=== PATIENT | male | born 1990 | race American Indian/Alaskan Native ===

== ENCOUNTER 2018-05-19 10:09 | Emergency (ER) | payer SELFPAY ==
[2018-05-19 10:23] VITALS: BP 178/90
--- NOTE | 2018-05-19 11:55 | Emergency Department Report ---
Nishi Doc - Documentation Documentation: Patient is a 28-year-old Iraqi male who states he fell 2 weeks ago and injured his left knee. Patient has a hard time bearing weight he was able to stand for me but states that putting full weight on left leg was painful. Patient does not remember all the details of his fall. Patient does appear to possibly have possible sleep disorder and he was snoring in the room after being in the room for approximately 1 minute dark and had to be woken up. Patient seemed very sleepy while we discussed his fall. Patient is does have some generalized tenderness to the left knee does have full range of motion x- rays be taken.
--- NOTE | 2018-05-19 12:34 | Emergency Department Report ---
ED Lower Extremity HPI - General Chief Complaint: Extremity Injury, Lower Stated Complaint: LEFT KNEE PAIN Time Seen by Provider: 05/19/18 11:50 Source: patient Mode of arrival: Ambulatory Limitations: No Limitations - History of Present Illness Initial Comments: This is a 28-year-old male who presents with left knee pain from falling yard at home 2 days ago. Patient is falling a sleep during exam. Patient states he was up all night studying which is causing drowsiness. He is unsure of how he fell at home in front yard. He stood up and couldn't bear weight to left lower extremity. Patient states it is very painful to bend left knee. Pain is 10 out of 10 on pain scale and sharp in intensity. Patient denies numbness or tingling, fever, loss of consciousness, change in voiding and bowel pattern, chest pain, and warmth. MD Complaint: knee injury (left knee pain) Onset/Timin -: days(s) Injury: Knee: Left Type of Injury: unknown Place: home Severity: severe Severity scale (0 -10): 10 Improves With: nothing Worsens With: weight bearing, movement, palpation Context: fall Associated Symptoms: snap/pop sensation, swelling, able to partially bear weight , ambulatory. denies: numbness, tingling, unable to bear weight Treatments Prior to Arrival: NSAIDS - Related Data Previous Rx's Medication Instructions Recorded Last Taken Type Acetaminophen/Codeine [Tylenol #3] 1 tab PO Q6H PRN #20 tab 07/18/15 Unknown Rx Cyclobenzaprine [Flexeril 10 MG 10 mg PO TID PRN #30 tablet 07/18/15 Unknown Rx TAB] Ibuprofen [Motrin] 600 mg PO Q8H PRN #50 tablet 07/18/15 Unknown Rx Ibuprofen [Motrin 800 MG tab] 800 mg PO Q8HR PRN #20 tablet 05/19/18 Unknown Rx traMADol [Ultram 50 MG tab] 50 mg PO Q6HR PRN #12 tablet 05/19/18 Unknown Rx Allergies Allergy/AdvReac Type Severity Reaction Status Date / Time Fish Containing Products AdvReac Unknown Verified 07/18/15 10:21 ED Review of Systems ROS: Stated complaint: LEFT KNEE PAIN Other details as noted in HPI Constitutional: denies: chills, fever Respiratory: denies: cough, shortness of breath, wheezing Cardiovascular: denies: chest pain, palpitations Gastrointestinal: denies: abdominal pain, nausea, vomiting, diarrhea Musculoskeletal: joint swelling (left ankle), arthralgia (left knee and ankle). denies: back pain Skin: denies: rash, lesions Neurological: denies: headache, weakness, paresthesias Psychiatric: denies: anxiety, depression ED Past Medical Hx - Past Medical History Hx Asthma: Yes Additional medical history: OBESITY - Surgical History Past Surgical History?: No - Social History Smoking Status: Current Every Day Smoker Substance Use Type: None - Medications Home Medications: Home Medications Medication Instructions Recorded Confirmed Last Taken Type Acetaminophen/Codeine [Tylenol #3] 1 tab PO Q6H PRN #20 tab 07/18/15 Unknown Rx Cyclobenzaprine [Flexeril 10 MG 10 mg PO TID PRN #30 tablet 07/18/15 Unknown Rx TAB] Ibuprofen [Motrin] 600 mg PO Q8H PRN #50 tablet 07/18/15 Unknown Rx Ibuprofen [Motrin 800 MG tab] 800 mg PO Q8HR PRN #20 tablet 05/19/18 Unknown Rx traMADol [Ultram 50 MG tab] 50 mg PO Q6HR PRN #12 tablet 05/19/18 Unknown Rx ED Physical Exam - General Limitations: No Limitations General appearance: alert, in no apparent distress, obese - Respiratory Respiratory exam: Present: normal lung sounds bilaterally. Absent: respiratory distress - Cardiovascular Cardiovascular Exam: Present: regular rate, normal rhythm. Absent: systolic murmur, diastolic murmur, rubs, gallop - GI/Abdominal GI/Abdominal exam: Present: soft, normal bowel sounds. Absent: organomegaly, mass - Extremities Exam Extremities exam: Present: normal inspection, normal capillary refill, pedal edema (LLE). Absent: calf tenderness - Expanded Lower Extremity Exam Left Hip exam: Present: normal inspection, full ROM Upper Leg exam: Present: normal inspection, full ROM Knee exam: Present: tenderness, swelling, pain w/ pronation/supination. Absent : full ROM (limited secondary to pain), abrasion, laceration, ecchymosis, deformity, crepidus, erythema, posterior draw sign, full knee extension Lower Leg exam: Present: tenderness (lateral proximal fibula), swelling. Absent : full ROM (limited secondary pain), laceration, ecchymosis, deformity, crepidus , dislocation, erythema, palpable cord, Nelida's sign Ankle exam: Present: tenderness, swelling. Absent: abrasion, laceration, ecchymosis, crepidus, dislocation, erythema Foot/Toe exam: Present: swelling Neuro vascular tendon exam: Present: no vascular compromise Gait: Positive: observed and limited by pain ED Course Vital Signs 05/19/18 10:17 Temperature 98.2 F Pulse Rate 113 H Respiratory 19 Rate Blood Pressure 178/90 [Left] O2 Sat by Pulse 97 Oximetry ED Lower Extremity MDM - Radiology Data Radiology results: report reviewed, image reviewed LEFT KNEE RADIOGRAPHS INDICATION: Fall, injury. COMPARISON: None similar. FINDINGS: AP, lateral and oblique left knee radiographs suggest a comminuted, Y-shaped proximal tibial metadiaphyseal fracture suspected, also extending to the proximal tibiofibular articulation. No significant displacement however. Intact knee joint articulation. No suprapatellar effusion. CONCLUSION: Left proximal fibular acute fracture, as described. - Medical Decision Making This is a 28 y.o. male presents with left knee pain s/p fall 2 days ago. Patient was examined by me and Dr. Benavides. Vitals are stable and patient is in no acute distress. Obtained a x-ray of L-spine. X-rays read by radiologist and report and image reviewed by myself. Left proximal fibular acute fracture, as described. Patient informed of results. Knee immobilizer applied to left lower extremity. Patient given crutches with training. Instructed to avoid weightbearing to LLE. Start ibuprofen and tramadol for pain. Follow-up with orthopedics from referrals. Plan discussed with patient to discharge home and treat outpatient. He agrees with ER plan. Patient discharged home in stable condition. Follow up with PCP in 2-3 days. Critical care attestation.: If time is entered above; I have spent that time in minutes in the direct care of this critically ill patient, excluding procedure time. ED Disposition Clinical Impression: Left lateral knee pain Fracture, fibula, proximal Qualifiers: Encounter type: initial encounter Fracture type: closed Fracture morphology: unspecified fracture morphology Laterality: left Qualified Code(s): S82.832A - Other fracture of upper and lower end of left fibula, initial encounter for closed fracture Disposition: TO HOME OR SELFCARE Is pt being admited?: No Does the pt Need Aspirin: No Condition: Stable Instructions: Leg Fracture (ED), Arthralgia (ED) Additional Instructions: Rest Take pain medication every 6 hours as needed for pain. Follow up with orthopedic surgery for management of leg fracture. Follow up with Primary Care Provider in 2-3 days. Prescriptions: Ibuprofen [Motrin 800 MG tab] 800 mg PO Q8HR PRN #20 tablet PRN Reason: Pain, Moderate (4-6) traMADol [Ultram 50 MG tab] 50 mg PO Q6HR PRN #12 tablet PRN Reason: Pain Referrals: ALBERTO SEARS MD [Staff Physician] - 3-5 Days [facility] [Provider Group] - 3-5 Days [facility] [Outside] - 3-5 Days Forms: Work/School Release Form(ED) Time of Disposition: 13:00 Print Language: NICARAGUAN
--- NOTE | 2018-05-19 12:49 | XRay Report ---
LEFT KNEE RADIOGRAPHS INDICATION: Fall, injury. COMPARISON: None similar. FINDINGS: AP, lateral and oblique left knee radiographs suggest a comminuted, Y-shaped proximal tibial metadiaphyseal fracture suspected, also extending to the proximal tibiofibular articulation. No significant displacement however. Intact knee joint articulation. No suprapatellar effusion. CONCLUSION: Left proximal fibular acute fracture, as described. Thank you for the opportunity to participate in this patient's care.
[2018-05-19] MEDS ORDERED: ULTRAM PO ONE (13:01)
== END 2018-05-19 13:14 | disposition home or self-care (01) ==
LOC: ED 10:09
DX: S82.832A Other fracture of upper and lower end of left fibula, initial encounter for closed fracture (principal); J45.909 Unspecified asthma, uncomplicated; F17.200 Nicotine dependence, unspecified, uncomplicated; Z91.013 Allergy to seafood; W19.XXXA Unspecified fall, initial encounter; Y93.89 Activity, other specified; Y99.8 Other external cause status; Y92.007 Garden or yard of unspecified non-institutional (private) residence as the place of occurrence of the external cause

== ENCOUNTER 2019-01-09 18:22 | Emergency (ER) | payer OTHER ==
--- NOTE | 2019-01-09 19:33 | Emergency Department Report ---
Blank Doc - Documentation Documentation: 28 y/o male c/o of rash to penis and scrotum having blisters too. No discharge. no dysuria. Plan evaluation [facility]
[2019-01-09] MEDS ORDERED: PERCOCET 5/325 PO STA (21:33)
--- NOTE | 2019-01-10 02:02 | Emergency Department Report ---
Chief Complaint: Urogenital-Male Stated Complaint: INFECTION IN PRIVATE AREA Time Seen by Provider: 01/09/19 19:32 - HPI History of Present Illness: 28-year-old -Swiss male presents to the emergency room for penile discharge and dysuria times a couple of days. Patient denies any fever or chills he denies any abdominal pain. Patient does admit to being sexually active with females one partner unprotected one partners protected. - Exam Vital Signs: Vital Signs 01/09/19 19:03 Temperature 97.9 F Pulse Rate 102 H Respiratory 20 Rate Blood Pressure 149/84 O2 Sat by Pulse 95 Oximetry MSE screening note: Focused history and physical exam performed. Due to findings the following was ordered: ED Disposition for MSE Clinical Impression: Discharge from penis Disposition: MED SCREENING EXAM-LEFT Is pt being admited?: No Does the pt Need Aspirin: No Condition: Stable Referrals: DORON IBARRA MD [Primary Care Provider] - 3-5 Days [facility] [Outside] - 3-[address] [facility] [Outside] - 3-5 Days [facility] [Outside] - 3-5 Days [facility] [Outside] - 3-5 Days [facility] [Outside] - 3-5 Days [facility] [Outside] - 3-5 Days
[2019-01-10 06:48] VITALS: BP 116/67
== END 2019-01-10 02:15 | disposition left against medical advice (07) ==
LOC: ED 18:22
DX: R36.9 Urethral discharge, unspecified (principal); R30.0 Dysuria; Z91.013 Allergy to seafood
CPT/HCPCS: 99282

== ENCOUNTER 2019-01-11 12:33 | Emergency (ER) | payer SELFPAY ==
[2019-01-11 12:49] VITALS: BP 163/96
[2019-01-11] MEDS ORDERED: XYLOCAINE 1% MPF 5 mL INFILTRATI ONE (16:05)
[2019-01-11] MEDS ORDERED: ROCEPHIN IM ONE (16:05)
[2019-01-11] MEDS ORDERED: FLAGYL PO ONE (16:05)
[2019-01-11] MEDS ORDERED: ZITHROMAX PO ONE (16:05)
[2019-01-11] MEDS ORDERED: ZOFRAN ODT PO ONE (16:06)
--- NOTE | 2019-01-11 16:08 | Emergency Department Report ---
ED Dysuria HPI - HPI Chief Complaint: Urogenital-Male Stated Complaint: PENIS SWELLING Time Seen by Provider: 01/11/19 15:35 Duration: 5 Days Severity: Moderate Symptoms: Dysuria: Yes, Frequency: No, Suprapubic Pain: No, Flank Pain: No, Fever: No, Hematuria: No, Abdominal Pain: No, Previous UTI's: No Other History: Patient is a 28-year-old male who comes to the ER complaining of discharge from his penis. He said he states that he was seen in the HIV clinic yesterday and was told he was negative and he was sent home on Zovirax. He was given no medicines in the clinic. Patient has beata green discharge from his penis. ED Review of Systems ROS: Stated complaint: PENIS SWELLING Other details as noted in HPI Comment: All other systems reviewed and negative Constitutional: denies: no symptoms reported, chills ENT: denies: as per HPI, ear pain Respiratory: denies: cough Cardiovascular: denies: as per HPI Endocrine: denies: see HPI Genitourinary: as per HPI, dysuria, discharge Musculoskeletal: denies: back pain Skin: denies: rash Neurological: denies: as per HPI, weakness Psychiatric: denies: anxiety Hematological/Lymphatic: denies: easy bleeding ED Past Medical Hx - Past Medical History Hx Asthma: Yes Additional medical history: OBESITY - Surgical History Past Surgical History?: No - Family History Family history: no significant - Social History Smoking Status: Current Every Day Smoker - Medications Home Medications: Home Medications Medication Instructions Recorded Confirmed Last Taken Type Acetaminophen/Codeine [Tylenol #3] 1 tab PO Q6H PRN #20 tab 07/18/15 Unknown Rx Cyclobenzaprine [Flexeril 10 MG 10 mg PO TID PRN #30 tablet 07/18/15 Unknown Rx TAB] Ibuprofen [Motrin] 600 mg PO Q8H PRN #50 tablet 07/18/15 Unknown Rx Ibuprofen [Motrin 800 MG tab] 800 mg PO Q8HR PRN #20 tablet 05/19/18 Unknown Rx traMADol [Ultram 50 MG tab] 50 mg PO Q6HR PRN #12 tablet 05/19/18 Unknown Rx Dysuria Exam - Exam General: Vital signs noted. No distress. Alert and acting appropriately. Exam: Yes Moist Mucous Membranes, No CVA Tenderness, No Abdominal Tenderness, No Rigidity or Guarding ED Course Vital Signs 01/11/19 01/11/19 12:47 15:47 Temperature 98.1 F Pulse Rate 106 H Respiratory 16 16 Rate Blood Pressure 163/96 O2 Sat by Pulse 98 Oximetry ED Medical Decision Making - Medical Decision Making beata malhotra dc from penis GC sent RPR sent treated with flagyl, azithromycin and rocephin safe sex education provided dc home with dc plan of care Vital Signs 01/11/19 01/11/19 12:47 15:47 Temperature 98.1 F Pulse Rate 106 H Respiratory 16 16 Rate Blood Pressure 163/96 O2 Sat by Pulse 98 Oximetry Critical care attestation.: If time is entered above; I have spent that time in minutes in the direct care of this critically ill patient, excluding procedure time. ED Disposition Clinical Impression: STD (sexually transmitted disease) Disposition: DC-01 TO HOME OR SELFCARE Is pt being admited?: No Does the pt Need Aspirin: No Condition: Stable Instructions: Safe Sex (ED), Sexually Transmitted Diseases (ED) Additional Instructions: CONTINUE YOUR ZOVIRAX DIET TOLERATED MEDS ORDERED TODAY IN ER FOLLOW INSTRUCTIONS ON THE BOTTLE FOLLOW UP PCP WITHIN 48 HOURS TO ENSURE YOU ARE GETTING BETTER ACTIVITY TOLERATED MOTRIN OR TYLENOL FOR PAIN OR FEVER RETURN TO THE ER FOR WORSENING SYMPTOMS NOT RELIEVED BY YOUR MEDICATIONS. ALL SEXUAL PARTNERS NEED TO BE TREATED DO NOT HAVE SEX WITH THEM OR YOU WILL GET THIS BACK NO SEX FOR 1 WEEK Referrals: [facility] [Other] - 3-5 Days Time of Disposition: 16:08
[2019-01-11 16:41] LABS: Bilirubin,Urine NEG (Negative); Blood,Urine MOD (Negative); Color,Urine Yellow (Yellow); Urobilinogen,Urine < 2.0 mg/dL (<2.0)
[2019-01-11 16:42] LABS: WBC,Urine > 182.0 /HPF (0.0-6.0)
== END 2019-01-11 17:07 | disposition home or self-care (01) ==
LOC: ED 12:33
DX: A64 Unspecified sexually transmitted disease (principal); F17.200 Nicotine dependence, unspecified, uncomplicated; Z79.899 Other long term (current) drug therapy; Z91.013 Allergy to seafood
CPT/HCPCS: 36415; 81001; 86592; 87591; 96372; 99283; J0696; Q0162

== ENCOUNTER 2020-01-20 07:00 | Emergency (ER) | payer SELFPAY ==
[2020-01-20 07:12] VITALS: BP 148/94
--- NOTE | 2020-01-20 08:01 | Emergency Department Report ---
ED Male HPI - General Chief complaint: Urogenital-Male Stated complaint: RASH IN PENIAL AREA Time Seen by Provider: 01/20/20 07:32 Source: patient Mode of arrival: Ambulatory Limitations: No Limitations - History of Present Illness Initial comments: This is a 29-year-old male who presents to the ED complaining of red, burning type rash to the penile head x1 week. Patient states that he had a similar rash about a year ago which lasted a week and went away. Patient states that the same rash returned a week ago and is worse this time. Patient denies any itching, fever, testicular swelling or pain, urinary symptoms or penile discharge. - Related Data Previous Rx's Medication Instructions Recorded Last Taken Type Acetaminophen/Codeine [Tylenol #3] 1 tab PO Q6H PRN #20 tab 07/18/15 Unknown Rx Cyclobenzaprine [Flexeril 10 MG 10 mg PO TID PRN #30 tablet 07/18/15 Unknown Rx TAB] Ibuprofen [Motrin] 600 mg PO Q8H PRN #50 tablet 07/18/15 Unknown Rx Ibuprofen [Motrin 800 MG tab] 800 mg PO Q8HR PRN #20 tablet 05/19/18 Unknown Rx traMADoL [Ultram 50 MG tab] 50 mg PO Q6HR PRN #12 tablet 05/19/18 Unknown Rx Acyclovir [Zovirax] 1 applic TP TID #1 oint...g. 01/20/20 Unknown Rx Allergies Allergy/AdvReac Type Severity Reaction Status Date / Time Fish Containing Products AdvReac Unknown Verified 01/20/20 07:05 ED Review of Systems ROS: Stated complaint: RASH IN PENIAL AREA Other details as noted in HPI Comment: All other systems reviewed and negative ED Past Medical Hx - Past Medical History Hx Asthma: Yes Additional medical history: OBESITY - Surgical History Past Surgical History?: No - Social History Smoking Status: Current Every Day Smoker - Medications Home Medications: Home Medications Medication Instructions Recorded Confirmed Last Taken Type Acetaminophen/Codeine [Tylenol #3] 1 tab PO Q6H PRN #20 tab 07/18/15 Unknown Rx Cyclobenzaprine [Flexeril 10 MG 10 mg PO TID PRN #30 tablet 07/18/15 Unknown Rx TAB] Ibuprofen [Motrin] 600 mg PO Q8H PRN #50 tablet 07/18/15 Unknown Rx Ibuprofen [Motrin 800 MG tab] 800 mg PO Q8HR PRN #20 tablet 05/19/18 Unknown Rx traMADoL [Ultram 50 MG tab] 50 mg PO Q6HR PRN #12 tablet 05/19/18 Unknown Rx Acyclovir [Zovirax] 1 applic TP TID #1 oint...g. 01/20/20 Unknown Rx ED Physical Exam - General Limitations: No Limitations General appearance: alert, in no apparent distress - Head Head exam: Present: atraumatic, normocephalic - Eye Eye exam: Present: normal appearance - ENT ENT exam: Present: mucous membranes moist - Neck Neck exam: Present: normal inspection - Respiratory Respiratory exam: Absent: respiratory distress - Cardiovascular Cardiovascular Exam: Absent: systolic murmur, diastolic murmur, rubs, gallop - GI/Abdominal GI/Abdominal exam: Present: soft, normal bowel sounds - Rectal Rectal exam: Present: deferred - exam: Present: other (Uncircumcised). Absent: testicular tenderness, scrotal swelling External exam: Present: erythema, lesions, other (Upon pulling back foreskin, there were some red ulcerative i lesions to the penile head, no lesions noted on the shaft, ). Absent: swelling, lacerations, bleeding - Extremities Exam Extremities exam: Present: normal inspection - Back Exam Back exam: Present: normal inspection - Neurological Exam Neurological exam: Present: alert, oriented X3, normal gait - Psychiatric Psychiatric exam: Present: normal affect, normal mood - Skin Skin exam: Present: warm, dry, intact, normal color. Absent: rash ED Course Vital Signs 01/20/20 07:10 Temperature 97.6 F Pulse Rate 124 H Respiratory 20 Rate Blood Pressure 148/94 O2 Sat by Pulse 89 Oximetry ED Medical Decision Making - Medical Decision Making 29-year-old male presents with a penile rash consistent with herpes simplex virus. I discussed with patient and his partner to follow-up with the primary care physician or the health department for STD screening specifically HSV2 I discussed with patient and his partner to avoid sex until lesions disappear and tested. Will discharge patient with Zovirax cream. Discussed proper cleaning techniques Vital signs are normal patient is in no acute distress Critical care attestation.: If time is entered above; I have spent that time in minutes in the direct care of this critically ill patient, excluding procedure time. ED Disposition Clinical Impression: Penile rash, Lesion of penis Disposition: DC-01 TO HOME OR SELFCARE Is pt being admited?: No Does the pt Need Aspirin: No Condition: Stable Instructions: Genital Herpes Simplex (ED), Balanitis (ED) Additional Instructions: Make sure to follow up with the primary care physician as discussed. Take all your medications as you've been prescribed. If you have any worsening symptoms or develop new symptoms please return to ED immediately. Prescriptions: Acyclovir [Zovirax] 1 applic TP TID #1 oint...g. Referrals: PRIMARY CARE, [Primary Care Provider] - 3-5 Days [facility] [Outside] - 3-[address] [facility] [Outside] - 3-5 Days [facility] [Outside] - 3-5 Days Forms: Work/School Release Form(ED) Time of Disposition: 08:10
== END 2020-01-20 08:46 | disposition home or self-care (01) ==
LOC: ED 07:00
DX: N48.89 Other specified disorders of penis (principal); R21 Rash and other nonspecific skin eruption; J45.909 Unspecified asthma, uncomplicated; E66.9 Obesity, unspecified; F17.200 Nicotine dependence, unspecified, uncomplicated; Z91.013 Allergy to seafood; Z68.41 Body mass index [BMI] 40.0-44.9, adult; Z79.899 Other long term (current) drug therapy
CPT/HCPCS: 99282